=== PATIENT | female | born 1940 | race Caucasian/White ===

== ENCOUNTER → 2021-05-22 | Emergency (ER) | payer MEDICARE ==
[~2021-05-22] VITALS: Ht 165.1 cm; Wt 72.7 kg
[~2021-05-22] MED LIST: ALEN70TA60 PO; ASCO100T10 PO; BUPR75TA3 PO; LEVA15HF4 INH; LEVO25TA2 PO; MAGN500C16 PO; METO50TA7 PO; MONT-40 PO; MULT1CAP34 PO; NIAC1CAP PO; PARO10TA85 PO; UBID1CAP3 PO; normal saline 1000ML IV soln IVB ONE
[2021-05-22 20:17] LABS: BASOPHILS % (AUTO) 0.3 % (0-1); EOSINOPHILS % (AUTO) 0.3 % (0-6); HEMATOCRIT 47.6 % (35.0-45.0); HEMOGLOBIN 16.3 g/dl (12.0-16.0); LYMPHOCYTES # (AUTO) 1.2 X10'3 (1.1-4.8); MEAN CORPUSCULAR HEMOGLOBIN 31.6 PG (27.0-31.0); MEAN CORPUSCULAR HGB CONC 34.2 g/dL (33.0-36.5); MEAN CORPUSCULAR VOLUME 92.3 FL (78-98); MEAN PLATELET VOLUME 7.7 FL (7.4-10.4); MONOCYTES # (AUTO) 0.5 X10'3 (0-0.9); MONOCYTES % (AUTO) 4.6 % (2-12); NEUTROPHILS # (AUTO) 8.9 X10'3 (1.8-7.7); NEUTROPHILS % (AUTO) 83.8 % (42-75); PLATELET COUNT 294 X10'3 (140-440); RED BLOOD COUNT 5.16 X10'6 (4.20-5.60); RED CELL DISTRIBUTION WIDTH 12.9 % (11.5-14.5); WHITE BLOOD COUNT 10.7 X10'3 (4.5-11.0)
[2021-05-22 20:32] LABS: ALANINE AMINOTRANSFERASE 21 U/L (12-78); ALBUMIN 3.7 G/DL (3.4-5.0); ALBUMIN/GLOBULIN RATIO 0.9 (1.1-1.5); ALKALINE PHOSPHATASE 111 IU/L (46-116); ANION GAP 11 (8-16); ASPARTATE AMINO TRANSFERASE 19 U/L (10-37); BILIRUBIN,TOTAL 0.7 MG/DL (0.1-1.0); BLOOD UREA NITROGEN 13 MG/DL (7-18); BUN/CREATININE RATIO 14.1 (6.6-38.0); CALCIUM 8.7 MG/DL (8.5-10.1); CHLORIDE 103 MMOL/L (99-107); CREATININE 0.92 MG/DL (0.40-0.90); GLUCOSE 117 MG/DL (70-104); POTASSIUM 3.8 MMOL/L (3.5-5.1); SODIUM 140 MMOL/L (135-145); TOTAL CARBON DIOXIDE 25.7 MMOL/L (24-32); TOTAL PROTEIN 7.7 G/DL (6.4-8.2); eGFR 59 ML/MIN
[2021-05-22 20:35] LABS: LIPASE 92 U/L (73-393)
[2021-05-22 20:53] LABS: CLARITY,URINE CLEAR (Clear); COLOR,URINE YELLOW (Yellow); UA COLLECTION TYPE STRAIGHT CATH
[2021-05-22 20:54] LABS: GLUCOSE, URINE NEGATIVE (Neg); KETONES,URINE 15 mg/dl (Neg); LEUKOCYTE ESTERASE ,URINE NEGATIVE (Neg); NITRITES, URINE NEGATIVE (Neg); OCCULT BLOOD,URINE NEGATIVE (Neg); PROTEIN,URINE TRACE mg/dl (Neg); UROBILINOGEN,URINE 0.2 E.U/dL (0.2-1.0)
[2021-05-22 20:56] LABS: MUCUS STRANDS FEW /LPF (Neg); SQUAMOUS EPITHELIAL CELL,UR FEW /LPF (FEW)
[2021-05-22 20:57] LABS: BACTERIA,URINE FEW /HPF (Neg)
[2021-05-22 20:58] LABS: WBC,URINE 0-4 /HPF (0-4)
--- NOTE | 2021-05-22 22:30 | NUR ---
PT AMB WITH STEADY GAIT USING WALKER, ABLE TO DRESS SELF WITHOUT ASSIST
[2021-05-22 22:46] VITALS: BP 152/80
--- NOTE | 2021-05-25 13:51 | NUR ---
PER DR FITZPATRICK TO RECONTACT PT NOTING MILDLY ELEVATED 2ND TROP. LEFT VOICEMAIL WITH PTS SON, ALVINA THIS AM. ALVINA JUST RETURNED THE CALL AND I ADVISED HIM PT NEEDED TO BE RETURNED TO THE ER FOR EVALUATION. HE ADVISED HE MAY BRING HER IN, OR FOLLOW-UP WITH PTS DIRECTOR PRODUCT MANAGEMENT.
== END | disposition home or self-care (01) ==
LOC: ER 17:47
DX: R53.1 Weakness (principal); R11.2 Nausea with vomiting, unspecified; I10 Essential (primary) hypertension; Z85.9 Personal history of malignant neoplasm, unspecified; Z79.899 Other long term (current) drug therapy; Z91.013 Allergy to seafood; Z95.0 Presence of cardiac pacemaker; W19.XXXA Unspecified fall, initial encounter; Y93.89 Activity, other specified; Y92.481 Parking lot as the place of occurrence of the external cause; Y99.8 Other external cause status
CPT/HCPCS: 36415; 71045; 80053; 81001; 83690; 84484; 85025; 93005; 99285; J7030; 96360; 96361